=== PATIENT | male | born 1990 | race Caucasian/White ===

== ENCOUNTER 2017-10-06 08:41 | Emergency (ER) | payer OTHER ==
[2017-10-06 08:47] VITALS: TEMP 97.2
--- NOTE | 2017-10-06 08:55 | CPEKG ---
Heart Rate: 114 RR Interval: 526 P-R Interval: 152 QRSD Interval: 100 QT Interval: 340 QTC Interval: [address]: [address]: 28 EKG Severity - BORDERLINE ECG - EKG Impression: SINUS TACHYCARDIA EKG Impression: BORDERLINE RIGHT AXIS DEVIATION EKG Impression: BORDERLINE PROLONGED QT INTERVAL Electronically Signed By: Kal Ac 06-Oct-2017 15:52:12
--- NOTE | 2017-10-06 09:04 | EDPHY ---
H & P Time Seen by Provider: 10/06/17 08:55 HPI/ROS: Chief complaint. Syncope HPI. 27-year-old male presents emergency department after syncopal episode this morning. He when out with friends last night and tells me had a hard night of drinking. Woke up this morning got out of bed took 3-4 steps got lightheaded and slowly fell to the floor. No injuries. He feels dazed. He has not had passing out episodes before. No headache, chest discomfort, trouble breathing, abdominal pain, vomiting or diarrhea. He is unsure about loss of consciousness. ROS Constitutional. no fever/chills, no weakness Eyes. no problems with vision ENT. no sore throat, no nasal drainage Cardiovascular. no chest pain Respiratory. no shortness of breath, no cough Abdominal. no abdominal pain, no nausea/vomiting, no diarrhea . no problems urinating MS. no calf pain/swelling, no neck/back pain, no joint pain Skin. no rash Lymph. no swollen glands Neuro. Syncope Past Medical/Surgical History: Healthy Social History: Single, nonsmoker, recent alcohol Smoking Status: Never smoked Physical Exam: General Appearance: Alert well-developed male mild distress vital signs significant for heart rate of 106 Eyes: Pupils equal and round no pallor or injection. ENT, oropharynx without trauma. Mucous membranes are somewhat dry. There is no evidence for trauma to the head Respiratory: There are no retractions, lungs are clear to auscultation. Cardiovascular: Regular rate and rhythm. Gastrointestinal: Abdomen is soft and nontender, no masses, bowel sounds normal. Neurological: Awake and alert, sensory and motor exams grossly normal. Skin: Warm and dry, no rashes. Musculoskeletal: Neck is supple nontender. Extremities symmetrical, full range of motion. Psychiatric: Patient is oriented X 3, there is no agitation. Constitutional: Initial Vital Signs Temperature (C) 36.2 C 10/06/17 08:44 Heart Rate 106 H 10/06/17 08:44 Respiratory Rate 18 10/06/17 08:44 Blood Pressure 156/90 H 10/06/17 08:44 O2 Sat (%) 96 10/06/17 08:44 O2 Delivery Mode Room Air Allergies/Adverse Reactions: cefaclor [From Ceclor] Allergy (Verified 10/06/17 08:43) loracarbef [From Lorabid] Allergy (Verified 10/06/17 08:43) morphine Allergy (Verified 10/06/17 08:43) Home Medications: Medication Instructions Recorded NK [No Known Home Meds] 10/06/17 Medical Decision Making - Diagnostics EKG Interpretation: EKG interpreted by me shows sinus tachycardia with normal interval and axis. QRS is normal there is no significant ST elevation or depression. There is no arrhythmia. The rate is 114 Procedures: IV normal saline with initial target of 2 L. Toradol and Zofran IV ED Course/Re-evaluation: Re-evaluation at 10:45 a.m.. Patient has had 1 L of fluid. Heart rate still about 109. Patient feeling better. Patient and friend would like the patient' s blood tested for his alcohol level. I have encouraged them not to do this but they are quite insistent. Blood alcohol level was ordered on the blood that he came in with. Re-evaluation 11:33 a.m.. Heart rate is 90 with blood pressure 127/83 Re-evaluation again at 12:05 p.m.. Patient is stable. He and I discussed laboratory evaluation, treatment plan, criteria for return, importance of follow -up and further evaluation. He expresses understanding and agreement Differential Diagnosis: This would certainly appear to be dehydration causing syncope after hard night drinking alcohol. His blood alcohol was still measurable when he arrived this morning. He was tachycardia. Considered acute coronary syndrome, electrolyte abnormalities as well. - Data Points Laboratory Results: Laboratory Results 10/06/17 09:00 10/06/17 09:00 10/06/17 10/06/17 10/06/17 10:55 09:00 09:00 WBC 4.77 10^3/uL 10^3/uL (3.80-9.50) RBC 5.77 10^6/uL 10^6/uL (4.40-6.38) Hgb 17.7 g/dL H g/dL (13.7-17.5) Hct 48.2 % % (40.0-51.0) MCV 83.5 fL fL (81.5-99.8) MCH 30.7 pg pg (27.9-34.1) MCHC 36.7 g/dL g/dL (32.4-36.7) RDW 11.6 % % (11.5-15.2) Plt Count 246 10^3/uL 10^3/uL (150-400) MPV 10.2 fL fL (8.7-11.7) Neut % (Auto) 46.4 % % (39.3-74.2) Lymph % (Auto) 41.7 % % (15.0-45.0) [place] % (Auto) 9.0 % % (4.5-13.0) Eos % (Auto) 2.1 % % (0.6-7.6) Baso % (Auto) 0.6 % % (0.3-1.7) Nucleat RBC Rel Count 0.0 % % (0.0-0.2) Absolute Neuts (auto) 2.21 10^3/uL 10^3/uL (1.70-6.50) Absolute Lymphs (auto) 1.99 10^3/uL 10^3/uL (1.00-3.00) Absolute Monos (auto) 0.43 10^3/uL 10^3/uL (0.30-0.80) Absolute Eos (auto) 0.10 10^3/uL 10^3/uL (0.03-0.40) Absolute Basos (auto) 0.03 10^3/uL 10^3/uL (0.02-0.10) Absolute Nucleated RBC 0.00 10^3/uL 10^3/uL (0-0.01) Immature Gran % 0.2 % % (0.0-1.1) Immature Gran # 0.01 10^3/uL 10^3/uL (0.00-0.10) Sodium 145 mEq/L mEq/L (135-145) Potassium 3.8 mEq/L mEq/L (3.5-5.2) Chloride 104 mEq/L mEq/L (97-110) Carbon Dioxide 23 mEq/l mEq/l (22-31) Anion Gap 18 mEq/L H mEq/L (8-16) BUN 12 mg/dL mg/dL (7-23) Creatinine 1.0 mg/dL mg/dL (0.7-1.3) Estimated GFR > 60 Glucose 97 mg/dL mg/dL (70-100) Calcium 9.6 mg/dL mg/dL (8.5-10.4) Ethyl Alcohol 13 mg/dL H mg/dL (0-10) Medications Given: Discontinued Medications Sodium Chloride (Ns) 1,000 mls @ 0 mls/hr IV ONCE ONE; Wide Open PRN Reason: Protocol Stop: 10/06/17 09:15 Last Admin: 10/06/17 09:25 Dose: 1,000 mls Sodium Chloride (Ns) 1,000 mls @ 0 mls/hr IV EDNOW ONE; Wide Open PRN Reason: Protocol Stop: 10/06/17 10:56 Last Admin: 10/06/17 11:00 Dose: 1,000 mls Sodium Chloride (Ns) 1,000 mls @ 0 mls/hr IV EDNOW ONE; Wide Open PRN Reason: Protocol Stop: 10/06/17 10:56 Last Admin: 10/06/17 11:00 Dose: 1,000 mls Ketorolac Tromethamine (Toradol) 30 mg IVP EDNOW ONE Stop: 10/06/17 09:14 Last Admin: 10/06/17 09:25 Dose: 30 mg Ondansetron HCl (Zofran) 4 mg IVP EDNOW ONE Stop: 10/06/17 09:14 Last Admin: 10/06/17 09:25 Dose: 4 mg Departure - Departure Disposition: Home, Routine, Self-Care Clinical Impression: Dehydration, Syncope and collapse Alcohol intoxication Qualifiers: Complication of substance-induced condition: with unspecified complication Qualified Code(s): F10.929 - Alcohol use, unspecified with intoxication, unspecified Condition: Good Instructions: Syncope (ED) Additional Instructions: Drink plenty of fluids today. Gradual diet advancement. Normal or alcohol today. Tylenol and ibuprofen as needed for headache. Return for another passing out episode. Follow up with Dr. Lima in the next 2-3 days for re- evaluation. Referrals: Kal Lima [Primary Care Provider] - 2-3 days, call for appt.
[2017-10-06] MEDS ORDERED: ONDANSETRON 4 MG/2 ML VIAL IVP ONE (09:13)
[2017-10-06] MEDS ORDERED: KETOROLAC 30 MG/1 ML SDV IVP ONE (09:13)
[2017-10-06] MEDS ORDERED: NS 1,000 ML IV ONE ×3 (09:14→10:55)
[2017-10-06 09:21] LABS: PLATELET COUNT 246 10^3/uL (150-400)
[2017-10-06 12:20] VITALS: BP 113/86; PULSE 88; RESP 16; O2SAT 98
== END 2017-10-06 12:18 | disposition home or self-care (01) ==
DX: R55 Syncope and collapse (principal); E86.0 Dehydration; F10.929 Alcohol use, unspecified with intoxication, unspecified; E86.9 Volume depletion, unspecified
CPT/HCPCS: 96374; G0480; J1885; J2405

== ENCOUNTER 2017-11-12 12:32 | Emergency (ER) | payer OTHER ==
[2017-11-12] MEDS ORDERED: NS 1,000 ML IV ONE (13:58)
[2017-11-12] MEDS ORDERED: ACETAMINOPHEN 325 MG TAB PO ONE (14:24)
[2017-11-12 14:32] LABS: PLATELET COUNT 187 10^3/uL (150-400)
--- NOTE | 2017-11-12 15:04 | EDPHY ---
H & P Stated Complaint: n/v/d Time Seen by Provider: 11/12/17 13:55 HPI/ROS: CHIEF COMPLAINT: Fever, nausea, vomiting, diarrhea HISTORY OF PRESENT ILLNESS: The patient presents to the ED from his primary care provider's office with a 1 day history of fever, vomiting and diarrhea. The patient has no history of travel outside the [place] or antibiotic use. The patient denies significant abdominal pain. The patient denies cough or congestion. He has had a several week history of a mild sore throat. The patient denies any skin rash or arthralgias. The patient does feel slightly weak and subjectively dehydrated. REVIEW OF SYSTEMS: A comprehensive 10 point review of systems is otherwise negative aside from elements mentioned in the history of present illness. Source: Patient Exam Limitations: No limitations - Personal History Current Tetanus/Diphtheria Vaccine: Unsure - Medical/Surgical History Hx Asthma: No Hx Chronic Respiratory Disease: No Hx Diabetes: No Hx Cardiac Disease: No Hx Renal Disease: No Hx Cirrhosis: No Hx Alcoholism: No Hx HIV/AIDS: No Hx Splenectomy or Spleen Trauma: No Other PMH: none reported - Social History Smoking Status: Never smoked - Physical Exam Exam: General Appearance: Alert, no distress Eyes: Pupils equal and round no pallor or injection ENT, Mouth: Mucous membranes moist Respiratory: There are no retractions, lungs are clear to auscultation Cardiovascular: Regular rate and rhythm Gastrointestinal: Minimal epigastric tenderness to palpation Neurological: A&O, normal motor function, normal sensory exam, normal cranial nerves Skin: Warm and dry, no rashes Musculoskeletal: Neck is supple nontender Extremities: symmetrical, full range of motion Constitutional: Initial Vital Signs Temperature (C) 37.3 C 11/12/17 12:34 Heart Rate 112 H 11/12/17 12:34 Respiratory Rate 18 11/12/17 12:34 Blood Pressure 124/92 H 11/12/17 12:34 O2 Sat (%) 97 11/12/17 12:34 O2 Delivery Mode Room Air Allergies/Adverse Reactions: cefaclor [From Ceclor] Allergy (Verified 11/12/17 12:33) loracarbef [From Lorabid] Allergy (Verified 11/12/17 12:33) morphine Allergy (Verified 11/12/17 12:33) Home Medications: Medication Instructions Recorded NK [No Known Home Meds] 10/06/17 Medical Decision Making ED Course/Re-evaluation: The patient had an IV established and received a L of normal saline. The patient presents the ED with fever and tachycardia in the setting of a gastrointestinal illness. I find the patient's abdominal examination to be benign aside from some minimal epigastric tenderness. The patient did have blood work which is reassuring including a normal CBC, serum chemistries, lipase and LFTs. Patient was re-evaluated at 3:30 p.m. and is currently feeling better. The patient will be discharged home with a prescription for Zofran and Imodium. His abdominal examination remains reassuring. Differential Diagnosis: Differential diagnosis considered includes pancreatitis, gastroenteritis, dehydration, hepatitis, appendicitis - Data Points Laboratory Results: Laboratory Results 11/12/17 14:04 11/12/17 14:04 11/12/17 11/12/17 14:04 14:04 WBC 9.34 10^3/uL 10^3/uL (3.80-9.50) RBC 5.83 10^6/uL 10^6/uL (4.40-6.38) Hgb 17.8 g/dL H g/dL (13.7-17.5) Hct 48.8 % % (40.0-51.0) MCV 83.7 fL fL (81.5-99.8) MCH 30.5 pg pg (27.9-34.1) MCHC 36.5 g/dL g/dL (32.4-36.7) RDW 11.8 % % (11.5-15.2) Plt Count 187 10^3/uL 10^3/uL (150-400) MPV 10.9 fL fL (8.7-11.7) Neut % (Auto) 91.3 % H % (39.3-74.2) Lymph % (Auto) 2.2 % L % (15.0-45.0) [place] % (Auto) 6.0 % % (4.5-13.0) Eos % (Auto) 0.1 % L % (0.6-7.6) Baso % (Auto) 0.2 % L % (0.3-1.7) Nucleat RBC Rel Count 0.0 % % (0.0-0.2) Absolute Neuts (auto) 8.52 10^3/uL H 10^3/uL (1.70-6.50) Absolute Lymphs (auto) 0.21 10^3/uL L 10^3/uL (1.00-3.00) Absolute Monos (auto) 0.56 10^3/uL 10^3/uL (0.30-0.80) Absolute Eos (auto) 0.01 10^3/uL L 10^3/uL (0.03-0.40) Absolute Basos (auto) 0.02 10^3/uL 10^3/uL (0.02-0.10) Absolute Nucleated RBC 0.00 10^3/uL 10^3/uL (0-0.01) Immature Gran % 0.2 % % (0.0-1.1) Immature Gran # 0.02 10^3/uL 10^3/uL (0.00-0.10) Sodium 140 mEq/L mEq/L (135-145) Potassium 4.2 mEq/L mEq/L (3.5-5.2) Chloride 101 mEq/L mEq/L (97-110) Carbon Dioxide 22 mEq/l mEq/l (22-31) Anion Gap 17 mEq/L H mEq/L (8-16) BUN 13 mg/dL mg/dL (7-23) Creatinine 1.0 mg/dL mg/dL (0.7-1.3) Estimated GFR > 60 Glucose 100 mg/dL mg/dL (70-100) Calcium 9.3 mg/dL mg/dL (8.5-10.4) Total Bilirubin 1.5 mg/dL H mg/dL (0.1-1.4) Conjugated Bilirubin 0.3 mg/dL mg/dL (0.0-0.5) Unconjugated Bilirubin 1.2 mg/dL H mg/dL (0.0-1.1) AST 35 IU/L IU/L (17-59) ALT 43 IU/L IU/L (21-72) Alkaline Phosphatase 45 IU/L IU/L (38-126) Total Protein 7.5 g/dL g/dL (6.3-8.2) Albumin 4.8 g/dL g/dL (3.5-5.0) Lipase 61 IU/L IU/L (23-300) Medications Given: Discontinued Medications Acetaminophen (Tylenol) 650 mg PO EDNOW ONE Stop: 11/12/17 14:25 Last Admin: 11/12/17 14:30 Dose: 650 mg Sodium Chloride (Ns) 1,000 mls @ 0 mls/hr IV EDNOW ONE; Wide Open PRN Reason: Protocol Stop: 11/12/17 13:59 Last Admin: 11/12/17 14:03 Dose: 1,000 mls Departure - Departure Disposition: Home, Routine, Self-Care Clinical Impression: Gastroenteritis Condition: Good Instructions: Gastroenteritis (ED) Additional Instructions: Sometimes we are unable to diagnose an obvious cause of abdominal pain in the Emergency Department. Based upon our evaluation today, I believe you are likely experiencing a viral gastrointestinal infection. Because more serious conditions can be difficult to diagnose early in the course of their presentation, we ask that you return to the Emergency Department in 8-12 hours for a recheck if you are still having pain. This is necessary to exclude the development of a more serious condition such as appendicitis or other intra- abdominal emergency. In the event your pain markedly increases before that time or you develop intractable vomiting or fever return to the Emergency Department immediately. Zofran as needed for nausea. Imodium as needed for diarrhea. Referrals: Kal Lima [Primary Care Provider] - As per Instructions
[2017-11-12 15:56] VITALS: BP 122/69; PULSE 109; RESP 19; TEMP 98.6; O2SAT 94
== END 2017-11-12 15:56 | disposition home or self-care (01) ==
DX: K52.9 Noninfective gastroenteritis and colitis, unspecified (principal); E86.9 Volume depletion, unspecified